=== PATIENT | female | born 1970 | race Caucasian/White ===

== ENCOUNTER 2016-12-05 09:41 | Emergency (ER) | payer OTHER ==
[~2016-12-05] VITALS: Ht 162.6 cm; Wt 69.4 kg
[2016-12-05 10:14] VITALS: BP 119/85
--- NOTE | 2016-12-05 10:18 | ED INFLUENZA/URI COMPLAINT ---
History of Present Illness General Chief Complaint: Upper Respiratory Sx/Fever Stated Complaint: COUGH AND CONGESTION Source: patient Exam Limitations: no limitations Vital Signs & Intake/Output Vital Signs & Intake/Output Vital Signs Date Time Temp Pulse Resp B/P Pulse O2 O2 Flow FiO2 Ox Delivery Rate 12/05 1054 97 12/05 1014 97.5 103 18 119/85 97 Room Air Allergies Coded Allergies: No Known Drug Allergies (NONE 12/05/16) Reconcile Medications Albuterol Sulfate (Proair Hfa) 90 MCG HFA.AER.AD 2 PUF INH Q4-6 PRN PRN BRONCHITIS Amoxicillin 500 MG TABLET 1 TAB PO TID BRONCHITIS Robitussin AC (Guaifenesin-Codeine Syrup) 200 MG-20 MG/10 ML LIQUID 10 ML PO Q6P PRN COUGH Triage Note: C/O CONESTED COUGH X 6 DAYS WITH SLIGHT CHEST PRESSURE, FEVER X 3 DAYS. STATES COUGH IS NON-PRODUCTIVE. Triage Nurses Notes Reviewed? yes : No Patient currently breastfeeds: No HPI: Patient presents with fevers, productive cough and myalgias worsening over the past 4 days. Patient states that her nephew was recently diagnosed with bronchitis and she takes care of of her son who has muscular dystrophy so she wants to make sure that she doesn't have anything contagious that she could pass on the him. Patient denies any chest pain or orthopnea. There is no dyspnea on exertion. There is no nausea or vomiting. Patient states that her temperature on as high as 101. Past History Travel History Traveled to [place] past 21 day No Medical History Any Pertinent Medical History? none Neurological: NONE EENT: NONE Cardiovascular: NONE Respiratory: NONE Gastrointestinal: NONE Hepatic: NONE Renal: NONE Musculoskeletal: NONE Psychiatric: NONE Endocrine: NONE Surgical History Surgical History: non-contributory Psychosocial History What is your primary language Wallisian Tobacco Use: Never used ETOH Use: denies use Illicit Drug Use: denies illicit drug use Family History Hx Contributory? No Review of Systems Review of Systems Constitutional: Reports: see HPI, chills, fever. EENTM: Reports: no symptoms. Respiratory: Reports: see HPI, cough. Cardiovascular: Reports: no symptoms. GI: Reports: no symptoms. Genitourinary: Reports: no symptoms. Musculoskeletal: Reports: see HPI, muscle pain. Skin: Reports: no symptoms. Neurological/Psychological: Reports: no symptoms. Hematologic/Endocrine: Reports: no symptoms. Immunologic/Allergic: Reports: no symptoms. All Other Systems: Reviewed and Negative Physical Exam Physical Exam General Appearance: well developed/nourished, alert, awake, anxious, mild distress Head: atraumatic Eyes: Bilateral: PERRL, EOMI. Ears, Nose, Throat: normal ENT inspection, moist mucous membrane, hearing grossly normal Neck: normal inspection, supple, full range of motion Respiratory: normal breath sounds, wheezing Cardiovascular: regular rate/rhythm, normal peripheral pulses Gastrointestinal: normal bowel sounds, soft, non-tender, no organomegaly Back: normal inspection, normal range of motion Extremities: normal inspection, normal capillary refill, normal range of motion, no edema Neurologic/Psych: no motor/sensory deficits, awake, alert, oriented x 3, normal mood/affect Skin: intact, normal color, warm/dry Lymphatic: no anterior cervical lino Core Measures Severe Sepsis Present: No Septic Shock Present: No Progress Differential Diagnosis: pneumonia Plan of Care: CXR Diagnostic Imaging: Viewed by Me: Radiology Read. Discussed w/RAD: Radiology Read. CXR Impression: PATIENT: HARISH ROLDAN PRESENT AGE: 46 PATIENT ACCOUNT NO: [id number] : 71 LOCATION: [facility] ORDERING PHYSICIAN: JOHNSON SINGH MD SERVICE DATE: 12/05/16 EXAM TYPE: RAD - XRY-CHEST XRAY, PA AND LATERAL EXAMINATION: XR CHEST CLINICAL INFORMATION: Cough. COMPARISON: None TECHNIQUE: 2 views of the chest were obtained. FINDINGS: Both lungs are fairly well-expanded and clear. The heart size and pulmonary vascularity is normal. No gross bony abnormality seen. IMPRESSION: Unremarkable chest exam. DICTATED BY: SAKINA BARRON MD DATE/TIME DICTATED:12/05/161232 SENIOR FINANCIAL REPORTING ACCOUNTANT:DARLEEN DATE/TIME TRANSCRIBED:12/05/161232 CONFIDENTIAL, DO NOT COPY WITHOUT APPROPRIATE AUTHORIZATION. <Electronically signed in Other Vendor System> SIGNED BY: SAKINA BARRON MD 12/05/161235 Initial ED EKG: none Departure Departure Disposition: HOME OR SELF CARE Condition: Stable Clinical Impression Primary Impression: Bronchitis Referrals: PATIENT HAS NO PRIMARY CARE DR (PCP/Family) Additional Instructions: DRINK PLENTY OF FLUIDS RETURN IF SYMPTOMS WORSEN OR FOR ANY COCNERNS Departure Forms: Customer Survey General Discharge Information Prescriptions: Current Visit Scripts Amoxicillin 1 TAB PO TID #30 TAB Albuterol Sulfate (Proair Hfa) 2 PUF INH Q4-6 PRN PRN BRONCHITIS #1 INHAL Robitussin AC (Guaifenesin-Codeine Syrup) 10 ML PO Q6P PRN COUGH #240 ML
--- NOTE | 2016-12-05 12:36 | RADIOLOGY REPORT ---
EXAMINATION: XR CHEST CLINICAL INFORMATION: Cough. COMPARISON: None TECHNIQUE: 2 views of the chest were obtained. FINDINGS: Both lungs are fairly well-expanded and clear. The heart size and pulmonary vascularity is normal. No gross bony abnormality seen. IMPRESSION: Unremarkable chest exam.
[2016-12-05] MEDS ORDERED: AMOXICILLIN500 M3 PO (12:48)
[2016-12-05] MEDS ORDERED: GUAIFENESIN-COD10 ML PO (12:48)
[2016-12-05] MEDS ORDERED: PROAIR HFA8.5 GM INH (12:48)
== END 2016-12-05 13:06 ==
LOC: ERH 09:41
DX: J40 Bronchitis, not specified as acute or chronic (principal)
CPT/HCPCS: 1263